=== PATIENT | male | born 1945 | race Caucasian/White ===

== ENCOUNTER 2020-07-04 12:34 | Outpatient (CLI) | payer OTHER ==
[~2020-07-04 12:34] MED LIST: ASA-EC81 MG PO; AVAPRO300 MG PO; NORVASC10 MG PO; WELLBUTRIN XL150 M1 PO; ZOCOR40 MG PO
== END 2020-07-04 12:40 | disposition home or self-care (01) ==
LOC: LAB 12:34
PROVIDERS: ATTEND Urology
DX: N30.00 Acute cystitis without hematuria (principal); B96.29 Other Escherichia coli [E. coli] as the cause of diseases classified elsewhere

== ENCOUNTER 2020-08-05 09:33 | Outpatient (CLI) | payer OTHER | END 2020-08-05 09:38 | disposition home or self-care (01) | LOC: LAB 09:33 | PROVIDERS: ATTEND Urology | DX: N30.00 Acute cystitis without hematuria (principal); B96.89 Other specified bacterial agents as the cause of diseases classified elsewhere ==

== ENCOUNTER 2020-08-11 09:45 | Outpatient (CLI) | payer OTHER | END 2020-08-11 09:52 | disposition home or self-care (01) | LOC: LAB 09:45 | PROVIDERS: ATTEND Urology | DX: N30.00 Acute cystitis without hematuria (principal); B96.89 Other specified bacterial agents as the cause of diseases classified elsewhere ==

== ENCOUNTER → 2021-04-21 07:11 | Outpatient (CLI) | payer OTHER ==
[~2021-04-21 07:11] MED LIST changes: +OMEGA-31000 MG PO
== END | disposition home or self-care (01) ==
LOC: RAD 07:11 → LAB 07:11
PROVIDERS: ATTEND Urology
DX: D68.9 Coagulation defect, unspecified (principal); I11.0 Hypertensive heart disease with heart failure

== ENCOUNTER 2021-04-28 08:10 | Outpatient (CLI) | payer OTHER ==
[~2021-04-28 08:10] MED LIST changes: -OMEGA-31000 MG PO
[2021-05-01] MEDS ORDERED: OMEGA-31000 MG PO (10:03)
== END 2021-04-28 15:00 | disposition home or self-care (01) ==
LOC: LAB 08:10
PROVIDERS: ATTEND Urology
DX: Z20.828 Contact with and (suspected) exposure to other viral communicable diseases (principal)

== ENCOUNTER 2021-05-03 05:06 | Day surgery (SDC) | payer OTHER ==
[~2021-05-03 05:06] MED LIST changes: +OMEGA-31000 MG PO
== END 2021-05-03 12:10 | disposition home or self-care (01) ==
LOC: CIR.AMB 05:06
PROVIDERS: ATTEND Urology
DX: N32.0 Bladder-neck obstruction (principal); N35.812 Other bulbous urethral stricture, male; Z20.822 Contact with and (suspected) exposure to COVID-19

== ENCOUNTER → 2021-05-08 08:00 | Outpatient (CLI) | payer OTHER | END | disposition home or self-care (01) | LOC: LAB 08:00 | PROVIDERS: ATTEND Urology | DX: N30.00 Acute cystitis without hematuria (principal) ==